=== PATIENT | male | born 1990 | race Caucasian/White ===

== ENCOUNTER 2017-03-27 19:46 | Emergency (ER) | payer BC ==
[2017-03-27] MEDS ORDERED: Lidocaine 1% 20 ML MDV INJECT ONE (19:55)
[2017-03-27] MEDS ORDERED: Diphtheria,Pertussis(Acell),Tetanus Vaccine 0.5 ML Syringe IM ONE (19:55)
--- NOTE | 2017-03-27 20:08 | EDM.PDOC ---
ED HPI GENERAL MEDICAL PROBLEM - General Chief Complaint: Laceration Stated Complaint: LACERATION LT INDEX FINGER Time Seen by Provider: 03/27/17 20:03 Source of Information: Reports: Patient History Limitations: Reports: No Limitations - History of Present Illness INITIAL COMMENTS - FREE TEXT/NARRATIVE: HISTORY AND PHYSICAL: History of present illness: patient is a 26-year-old male who presents to the emergency room today with complaints of laceration to his left index finger. Patient was cutting food and lacerated the distal tip of the left index finger with a kitchen knife. Patient reports this knife was relatively new/clean. Patient is unsure of his last tetanus, will update this today.Denies any numbness or tingling. Bleeding is controlled with pressure. Review of systems: As per history of present illness and below otherwise all systems reviewed and negative. Past medical history: As per history of present illness and as reviewed below otherwise noncontributory. Surgical history: As per history of present illness and as reviewed below otherwise noncontributory. Social history: No reported history of drug or alcohol abuse. Family history: As per history of present illness and as reviewed below otherwise noncontributory. Physical exam: Gen.: Well-developed and well-nourished 26-year-old male. Able to speak in full sentences without shortness of breath. Alert and oriented. HEENT: Atraumatic, normocephalic, pupils reactive, negative for conjunctival pallor or scleral icterus, mucous membranes moist, throat clear, neck supple, nontender, trachea midline. Lungs: Clear to auscultation, breath sounds equal bilaterally, chest nontender. Heart: S1S2, regular, negative for clicks, rubs, or JVD. Abdomen: Soft, nondistended, nontender. Negative for masses or hepatosplenomegaly. Negative for costovertebral tenderness. Pelvis: Stable nontender. Genitourinary: Deferred. Rectal: Deferred. Extremities: Patient has intact flexion of affected finger including the DIP joint, does not appear to have any tendon involvement. Strong radial pulse. Neurovascular unremarkable. skin: 2 cm laceration to the ulnar surface of the left index finger above the DIP joint. Neuro: Awake, alert, oriented. Cranial nerves II through XII unremarkable. Cerebellum unremarkable. Motor and sensory unremarkable throughout. Exam nonfocal. Diagnostics: X-ray Therapeutics: Digital block using 1% liodcaine 4-0 Nylon interrupted sutures, #5 (Patient tolerated well) nonstick bacitracin dressing Impression: Finger laceration Plan: 1. Please keep the skin clean and dry. Monitor for signs of infection as we discussed. Have your stitches removed in 7-10 days. 2. You may take Tylenol and/or ibuprofen as needed for pain management. 3. Follow-up with your primary care provider in the next 1-2 days. Return to the ED as needed as discussed Definitive disposition and diagnosis as appropriate pending reevaluation and review of above. Onset: Today Duration: Hour(s): Location: Reports: Lower Extremity, Left Left 2-Index finger Pain Score (Numeric/FACES): 7 - Related Data Allergies Allergy/AdvReac Type Severity Reaction Status Date / Time Sulfa (Sulfonamide Allergy Cannot Verified 03/27/17 19:56 Antibiotics) Remember Home Meds: Home Meds . [No Known Home Meds] 03/27/17 [History] Past Medical History - Past Health History Medical/Surgical History: Denies Medical/Surgical History Other Musculoskeletal History: broke left hand - Infectious Disease History Infectious Disease History: Reports: Chicken Pox - Past Surgical History Musculoskeletal Surgical History: Reports: None Social & Family History - Family History Family Medical History: Noncontributory - Tobacco Use Smoking Status *Q: Never Smoker Second Hand Smoke Exposure: No - Caffeine Use Caffeine Use: Reports: Coffee, Soda Caffeine Use Comment: "rarely" - Recreational Drug Use Recreational Drug Use: No ED ROS GENERAL - Review of Systems Review Of Systems: ROS reveals no pertinent complaints other than HPI. ED EXAM, SKIN/RASH Exam: See Below (see dictation) ED SKIN PROCEDURES - Laceration/Wound Repair Left Palmar Distal Digit - Index Finger Lac/Wound length In cm: 2 Appearance: Subcutaneous Distal NVT: Neuro & Vascular Intact, No Tendon Injury Anesthetic Type: Local Local Anesthesia - Lidocaine (Xylocaine): 1% Plain Local Anesthetic Volume: 5cc Skin Prep: Chlorhexidine (Hibiciens), Saline Saline Irrigation (cc's): 20 Exploration/Debridement/Repair: Wound Explored, In a Bloodless Field, Explored to Base, No Foreign Material Found Closed with: Sutures Suture Size: 4-0 # of Sutures: 5 Suture Type: Nylon Course - Vital Signs Last Recorded V/S: Last Vital Signs Temp 35.8 C 10/10/17 19:52 Pulse 98 03/27/17 19:52 Resp 18 03/27/17 19:52 BP 127/82 03/27/17 19:52 Pulse Ox 95 03/27/17 19:52 - Orders/Labs/Meds Orders: Active Orders 24 hr Category Date Time Status Communication Order [RC] STAT Care 03/27/17 20:18 Ordered Vaccines to be Administered [RC] PER UNIT ROUTINE Care 03/27/17 19:56 Ordered Fingers Second Digit Lt F1 [CR] Stat Exams 03/27/17 19:55 Ordered Meds: Medications Discontinued Medications Generic Name Dose Route Start Last Admin Trade Name Amol PRN Reason Stop Dose Admin Bacitracin 1 dose 03/27/17 20:18 03/27/17 20:25 Bacitracin Oint 1 Gm TOP 03/27/17 20:19 1 dose ONETIME ONE Administration Diphtheria/Tetanus/Acell Pertussis 0.5 ml 03/27/17 19:55 03/27/17 20:11 Adacel IM 03/27/17 19:56 0.5 ml .ONCE ONE Administration Lidocaine HCl 20 ml 03/27/17 19:55 03/27/17 20:14 Xylocaine 1% INJECT 03/27/17 19:56 20 ml ONETIME ONE Administration Departure - Departure Time of Disposition: 20:38 Disposition: Home, Self-Care 01 Clinical Impression: Finger laceration Qualifiers: Encounter type: initial encounter Finger: index finger Damage to nail status: without damage Foreign body presence: without foreign body Laterality: left Qualified Code(s): S61.211A - Laceration without foreign body of left index finger without damage to nail, initial encounter - Discharge Information Referrals: PCP,None [Primary Care Provider] - Forms: ED Department Discharge Additional Instructions: My general discharge The following information is given to patients seen in the emergency department who are being discharged to home. This information is to outline your options for follow-up care. We provide all patients seen in our emergency department with a follow-up referral. The need for follow-up, as well as the timing and circumstances, are variable depending upon the specifics of your emergency department visit. If you don't have a primary care physician on staff, we will provide you with a referral. We always advise you to contact your personal physician following an emergency department visit to inform them of the circumstance of the visit and for follow-up with them and/or the need for any referrals to a consulting specialist. The emergency department will also refer you to a specialist when appropriate. This referral assures that you have the opportunity for follow-up care with a specialist. All of these measure are taken in an effort to provide you with optimal care, which includes your follow-up. Under all circumstances we always encourage you to contact your private physician who remains a resource for coordinating your care. When calling for follow-up care, please make the office aware that this follow-up is from your recent emergency room visit. If for any reason you are refused follow-up, please contact the [facility] at and asked to speak to the emergency department charge nurse. [facility] [address] [place] [phone] 1. Please keep the skin clean and dry. Monitor for signs of infection as we discussed. Have your stitches removed in 7-10 days. 2. You may take Tylenol and/or ibuprofen as needed for pain management. 3. Follow-up with your primary care provider in the next 1-2 days. Return to the ED as needed as discussed - My Orders Last 24 Hours: My Active Orders 03/27/17 19:55 Fingers Second Digit Lt F1 [CR] Stat 03/27/17 19:56 Vaccines to be Administered [RC] PER UNIT ROUTINE 03/27/17 20:18 Communication Order [RC] STAT - Assessment/Plan Last 24 Hours: My Active Orders 03/27/17 19:55 Fingers Second Digit Lt F1 [CR] Stat 03/27/17 19:56 Vaccines to be Administered [RC] PER UNIT ROUTINE 03/27/17 20:18 Communication Order [RC] STAT
[2017-03-27] MEDS ORDERED: Bacitracin Oint 1 GM U/D Packet TOP ONE (20:18)
--- NOTE | 2017-03-28 11:05 | CR ---
EXAM DATE: 03/27/17 PATIENT'S AGE: 26 Patient: OC MARK Facility: [place], [place] Site . Site : 1990 Study: XRay Extremity Left FINGER [id number] 8:17:28 PM Ordering Physician: Doctor Price Final Report: INDICATION: Laceration TECHNIQUE: Three views left index finger COMPARISON: None FINDINGS: Bones: Alignment is normal. No fractures or bone lesions. Joint spaces: Unremarkable. Soft tissues: Unremarkable. IMPRESSION: Negative. Dictated by Alexys Ca MD @ 03/27/2017 9:09:09 PM Dictated by: Alexys Ca MD @ 03/27/2017 21:09:14 (Electronic Signature) Report Signed by Proxy. NA
== END 2017-03-27 21:01 | disposition home or self-care (01) ==
LOC: MW.ED 19:46
DX: S61.211A Laceration without foreign body of left index finger without damage to nail, initial encounter (principal); Z88.2 Allergy status to sulfonamides; W26.0XXA Contact with knife, initial encounter; Z23 Encounter for immunization
CPT/HCPCS: 12001; 73140-26-F1; 73140-F1; 90471; 90715; 99282; 99282-25

== ENCOUNTER 2017-04-05 10:00 | Emergency (ER) | payer BC | END 2017-04-05 10:10 | disposition left against medical advice (07) | LOC: MW.ED 10:00 | DX: Z53.21 Procedure and treatment not carried out due to patient leaving prior to being seen by health care provider (principal) ==